=== PATIENT | male | born 2000 | race American Indian/Alaskan Native ===

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

== ENCOUNTER 2018-07-06 17:20 | Emergency (ER) | payer OTHER ==
[~2018-07-06] VITALS: Ht 177.8 cm; Wt 59.0 kg
[~2018-07-06 17:20] MED LIST: ZOFRAN ODT4 MG PO
== END 2018-07-06 20:30 | disposition home or self-care (01) ==
LOC: ED 17:20
DX: E86.0 Dehydration (principal); R10.84 Generalized abdominal pain; R11.10 Vomiting, unspecified; R10.816 Epigastric abdominal tenderness
CPT/HCPCS: 74177; 80053; 83690; 85025; 96361; 96374; 96375; 99284-25; G0480; J2405; J7030; Q9967

== ENCOUNTER 2020-12-08 16:32 | Emergency (ER) | payer OTHER ==
[~2020-12-08] VITALS: Ht 177.8 cm; Wt 59.0 kg
== END 2020-12-09 17:22 | disposition home or self-care (01) ==
LOC: ED 16:32
DX: F15.10 Other stimulant abuse, uncomplicated (principal)
CPT/HCPCS: 51701; 80053; 80176; 81001; 84443; 85025; 99284-25; 99285-25; J3486; Q0161

== ENCOUNTER 2021-07-05 15:08 | Emergency (ER) | payer OTHER ==
[~2021-07-05] VITALS: Ht 180.3 cm; Wt 54.4 kg
== END 2021-07-05 21:20 | disposition home or self-care (01) ==
LOC: ED 15:08
DX: F23 Brief psychotic disorder (principal); F19.10 Other psychoactive substance abuse, uncomplicated
CPT/HCPCS: 80053; 81001; 84443; 85025; 96374; 96375; 99285-25; C9803; G0480; J1200; J1790; J7030; J7121; U0003

== ENCOUNTER 2022-03-17 15:52 | Emergency (ER) | payer OTHER ==
[~2022-03-17] VITALS: Ht 180.3 cm; Wt 54.4 kg
[2022-03-17] MEDS ORDERED: VALIUM5 MG PO (16:20)
== END 2022-03-17 16:25 | disposition home or self-care (01) ==
LOC: ED 15:52
DX: F15.129 Other stimulant abuse with intoxication, unspecified (principal)
CPT/HCPCS: 99284

== ENCOUNTER 2024-02-01 17:53 | Emergency (ER) | payer OTHER ==
[~2024-02-01] VITALS: Ht 180.3 cm; Wt 62.6 kg
[~2024-02-01 17:53] MED LIST changes: +VALIUM5 MG PO
[2024-02-01] MEDS ORDERED: DIPHTH,PERTUSS(ACELL),TET VAC 0.5 ML SYRINGE IM ONE (19:45)
[2024-02-01] MEDS ORDERED: SILVER SULFADIAZINE 400 GM HOME.PACK TOP ONE (20:00)
[2024-02-01 20:12] VITALS: BP 103/62
== END 2024-02-01 20:19 | disposition home or self-care (01) ==
LOC: ED 17:53
DX: T25.222A Burn of second degree of left foot, initial encounter (principal); T25.221A Burn of second degree of right foot, initial encounter; X19.XXXA Contact with other heat and hot substances, initial encounter; Z23 Encounter for immunization
CPT/HCPCS: 16020; 90471; 90715; 99283-25